=== PATIENT | female | born 1970 ===

== ENCOUNTER 2023-12-28 10:02 | Outpatient (CLI) | payer BC ==
--- NOTE | 2023-12-29 18:50 | Ultrasound Report ---
PROCEDURE: Extremity Soft Tissue Limited INDICATIONS: MASS LT HIP TECHNIQUE: Real-time scanning was performed of the left hip, with image documentation. COMPARISON: None. FINDINGS: In the area of clinical concern in the subcutaneous tissue of the left hip, there is an ec hogenic structure measuring 3.4 x 3.3 x 1.2 cm. Color flow imaging demonstrates that there is no inte rnal vascularity. IMPRESSION: Left hip subcutaneous 3.4 cm nonvascular hyperechoic structure may represent lipoma Reviewed by: Yoon Pereyra MD on 12/29/2023 4:13 PM PST Approved by: Yoon Pereyra MD on 12/29/2023 4:13 PM PST Station ID: [id number]
== END 2023-12-28 10:03 | disposition home or self-care (01) ==
LOC: DI 10:02
PROVIDERS: ATTEND Nurse Practitioner Family
DX: R22.42 Localized swelling, mass and lump, left lower limb (principal)

== ENCOUNTER 2024-04-03 08:09 | Outpatient (CLI) | payer BC ==
[2024-04-03 12:10] LABS: BASOPHILS % (AUTO) 0.5 %; EOSINOPHILS # (AUTO) 0.1 10^3/uL (0.0-0.7); EOSINOPHILS % (AUTO) 2.3 %; HCT - HEMATOCRIT 41.1 % (37.0-47.0); HGB - HEMOGLOBIN 13.2 g/dL (12.0-16.0); LYMPHOCYTES # (AUTO) 1.9 10^3/uL (1.5-3.5); LYMPHOCYTES % (AUTO) 34.2 %; MEAN CORPUSCULAR HEMOGLOBIN 30.8 pg (27.0-31.0); MEAN CORPUSCULAR HGB CONC 32.1 g/dL (32.0-36.0); MEAN CORPUSCULAR VOLUME 95.8 fL (81.0-99.0); MEAN PLATELET VOLUME 11.3 fL (7.9-10.8); MONOCYTES # (AUTO) 0.4 10^3/uL (0.0-1.0); MONOCYTES % (AUTO) 6.9 %; NEUTROPHILS # (AUTO) 3.2 10^3/uL (1.5-6.6); NEUTROPHILS % (AUTO) 55.9 %; PLT - PLATELET COUNT 271 10^3/uL (130-450); RED BLOOD COUNT 4.29 10^6/uL (4.20-5.40); RED CELL DISTRIBUTION WIDTH 13.7 % (12.0-15.0); WHITE BLOOD COUNT 5.6 x10^3/uL (4.8-10.8)
[2024-04-03 12:11] LABS: ESTIMATED AVERAGE GLUCOSE 111 mg/dL (70-100); HEMOGLOBIN A1c% 5.5 % (4.27-6.07)
[2024-04-03 12:29] LABS: ALBUMIN 4.1 g/dL (3.2-5.5); ALBUMIN/GLOBULIN RATIO 1.6 (1.0-2.2); ALKALINE PHOSPHATASE 67 IU/L (42-121); ALT ALANINE AMINOTRANSFERASE 25 IU/L (10-60); AST ASPARTATE AMINOTRANSFERASE 24 IU/L (10-42); BUN - BLOOD UREA NITROGEN 22 mg/dL (6-20); CALCIUM 9.6 mg/dL (8.5-10.3); CARBON DIOXIDE - CO2 28 mmol/L (21-32); CHLORIDE 105 mmol/L (101-111); CHOL/HDL RATIO 3.7 (<4.4); CHOLESTEROL 172 mg/dL; CREATININE 0.8 mg/dL (0.6-1.3); GFR - MDRD 75 (>89); GLUCOSE 114 mg/dL (74-104); HDL CHOLESTEROL 46 mg/dL; LDL CHOLESTEROL,CALCULATED 96 mg/dL; LDL/HDL RATIO 2.1 (<4.4); POTASSIUM 4.3 mmol/L (3.5-4.5); SODIUM 139 mmol/L (135-145); TOTAL PROTEIN 6.6 g/dL (6.4-8.9); TRIGLYCERIDES 151 mg/dL (48-352); VLDL CHOLESTEROL 30 mg/dL
== END 2024-04-03 08:10 | disposition home or self-care (01) ==
LOC: LAB.N 08:09
PROVIDERS: ATTEND Nurse Practitioner Family
DX: Z00.00 Encounter for general adult medical examination without abnormal findings (principal); E66.01 Morbid (severe) obesity due to excess calories
CPT/HCPCS: 36415; 80053; 80061; 83036; 83721; 84439; 84443; 85025

== ENCOUNTER 2024-04-17 08:04 | Outpatient (CLI) | payer BC ==
--- NOTE | 2024-04-20 10:44 | Mammography Report ---
BILATERAL DIGITAL SCREENING MAMMOGRAM 3D/2D: 04/17/2024 CLINICAL: Routine screening. Comparison is made to exam dated: 05/01/2022 mammogram - [facility]. There are scattered areas of fibroglandular density in both breasts (category b / 25%-50% glandular t issue). There is a new focal asymmetry in the left breast at 3 o'clock posterior depth. No other significant masses, calcifications, or other findings are seen in either breast. IMPRESSION: INCOMPLETE: NEEDS ADDITIONAL IMAGING EVALUATION The new focal asymmetry in the left breast is indeterminate. Additional views with possible ultrasou nd are recommended. Based on the Tyrer Cuzick model (a risk assessment model) the patient's lifetime risk is 10.2% and he r 10 year risk is 2.9%. According to the ACR, ACS, and NCCN guidelines, an annual breast MRI exam jayme ng with mammogram is recommended if the patient's lifetime risk is 20% or greater. This exam was interpreted at Station ID: [id number]. NOTE: For mammograms, a report in lay terms will be sent to the patient. Approximately 15% of breast malignancies will not be visualized mammographically. In the management of a palpable breast mass, a negative mammogram must not discourage biopsy of a clinically suspicious lesion. Electronically Signed By: Lenny hernandez/deven:04/17/2024 13:09:59 ACR BI-RADS Category 0: Incomplete 3340F PARENCHYMAL PATTERN: (A) - The breast(s) demonstrate(s) scattered fibroglandular densities. BI-RADS CATEGORY: (0) - 0 Mammo and [place] [id number] Immediate follow-up LATERALITY: (B)
== END 2024-04-17 08:05 | disposition home or self-care (01) ==
LOC: DI 08:04
DX: Z12.31 Encounter for screening mammogram for malignant neoplasm of breast (principal); R92.8 Other abnormal and inconclusive findings on diagnostic imaging of breast; R92.323 Mammographic fibroglandular density, bilateral breasts